=== PATIENT | male | born 1990 | race Caucasian/White ===

== ENCOUNTER → 2020-08-27 | Outpatient (CLI) | payer BC, OTHER ==
[~2020-08-27] MED LIST: ADDERALL 20 MG20 M1 PO; NORCO5 PO; VYVANSE50 MG PO
== END ==
LOC: LAB 13:46
PROVIDERS: ATTEND Orthopaedic Surgery
DX: Z01.812 Encounter for preprocedural laboratory examination (principal); Z20.822 Contact with and (suspected) exposure to COVID-19

== ENCOUNTER 2020-09-01 08:41 | Day surgery (SDC) | payer BC, OTHER ==
[~2020-09-01] VITALS: Ht 185.4 cm; Wt 100.7 kg
--- NOTE | ~2020-09-01 | O ---
[facility] [place] [address] OPERATIVE REPORT Name: VALENTINO COLLADO Room #: 150-4 [facility]#: [id number] Admission: 09/01/20 Attend Phys: Mandeep Heck MD Discharge: Date of : 89 Report #: [id number] THIS REPORT FOR: cc: Gaurav Louise MD, Greg E. MD Abraham,Mandeep Esqueda MD ~ DATE OF SERVICE: 09/01/2020 PREOPERATIVE DIAGNOSIS: Right knee recurrent bucket-handle lateral meniscus tear. POSTOPERATIVE DIAGNOSES: Right knee recurrent bucket-handle lateral meniscus tear. PROCEDURES: Right knee arthroscopy with partial lateral meniscectomy. SURGEON: Mandeep Heck MD. ANESTHESIA: LMA. TOURNIQUET TIME: 20 minutes. COMPLICATIONS: None. SPECIMENS: None. CONDITION UPON LEAVING THE OPERATING ROOM: Stable. INDICATIONS FOR PROCEDURE: The patient is a 29-year-old gentleman who several years ago, had a bucket handle lateral meniscus tear. He underwent repair of the meniscus at that time and had done well. Recently, he has noted pain and locking of his knee. MRI scan confirmed recurrent tear of his lateral meniscus and after discussion with him, he elected for right knee arthroscopy with partial lateral meniscectomy and debridement as needed. DESCRIPTION OF PROCEDURE: Risks, benefits, alternatives, complications were discussed in detail with the patient including, but not limited to risk of anesthesia, risk of damage to nerves, arteries, blood vessels, risk for infection, bleeding, risk for continued knee pain and need for reoperation. Informed consent was obtained from the patient. Right knee was appropriately marked in the preoperative holding area. IV Ancef was given for preoperative antibiotics. He was brought to the operating room and placed in supine position on operating room table. LMA anesthesia was induced without complication. Tourniquet was placed on the right thigh. Right lower extremity was prepped and draped in normal sterile fashion. Timeout was performed properly identifying [address] [address] OPERATIVE REPORT Name: VALENTINO COLLADO Room #: 150-4 [facility]..#: [id number] Admission: 09/01/20 Attend Phys: Mandeep Heck MD Discharge: Date of : 89 Report #: [id number] the patient and procedure as well as the instrumentation. All in the operating room were in agreement. Right lower extremity was exsanguinated, tourniquet was inflated. Tourniquet time was 20 minutes. Standard anterolateral portal was established with 11 blade through the skin. Arthroscope was introduced into the patellofemoral compartment, diagnostic arthroscopy was undertaken. Patellofemoral compartment was visualized and found to be without pathology. Medial gutter was visualized and found to be without pathology. Medial compartment was visualized and medial portal was established under arthroscopic visualization. Probe was introduced into the medial compartment and there was noted to be an intact medial meniscus. The notch was visualized and found to have an intact anterior cruciate ligament. Lateral compartment was visualized and found to have a bucket handle tear of the posterior horn of the medial meniscus. The tear was then excised using arthroscopic biter and smoothed back with a shaver. Lateral gutter was visualized and found to be without pathology. After this, all fluid was allowed to drain from the knee. Knee was injected with 30 mL of 0.5% Marcaine. Incision was closed with 3-0 nylon. Soft dressing of Adaptic, 4 x 4, Webril, Abner wrap were applied. The patient tolerated this procedure well and went to recovery room under care of anesthesia postoperatively. By: [id number] Mandeep Heck MD /nt
[~2020-09-01 08:41] MED LIST changes: -NORCO5 PO
[2020-09-01 10:02] VITALS: BP 127/86
[2020-09-01] MEDS ORDERED: NORCO5 PO (11:37)
[2020-09-01 11:43] VITALS: BP 127/86
== END 2020-09-01 12:50 | disposition home or self-care (01) ==
LOC: OR 08:41 → TBA 08:41 → OR 09:13
PROVIDERS: ATTEND Orthopaedic Surgery
DX: S83.251A Bucket-handle tear of lateral meniscus, current injury, right knee, initial encounter (principal); M25.561 Pain in right knee; Z98.890 Other specified postprocedural states; Z79.899 Other long term (current) drug therapy; X58.XXXA Exposure to other specified factors, initial encounter; Y93.89 Activity, other specified; Y92.89 Other specified places as the place of occurrence of the external cause; Y99.8 Other external cause status
CPT/HCPCS: 50010; 50101; 50405; 56526; 57103; 57180; 58577; 58589; 62110; 62900; 70005